=== PATIENT | male | born 1945 | race Caucasian/White ===

== ENCOUNTER 2018-02-02 18:09 | Inpatient (IN) | payer OTHER ==
[~2018-02-02] VITALS: Ht 175.3 cm; Wt 149.5 kg
[~2018-02-02 18:09] MED LIST: ALBUTEROL2.5 MG/3 M INH; ANTIVERT12.5 MG PO; ASPIRIN81 M4 PO; ATORVASTATIN CA40 M1 PO; CENTRUM SILVER1 EAC3 PO; CIPRO 500MG TA500 MG PO; FOLIC ACID1 M1; FUROSEMIDE40 M1 PO; GEMFIBROZIL600 M1 PO; LASIX80 M1 PO; LISINOPRIL10 M1 PO; METOPROLOL TART50 M1 PO; PREVACID15 M1 PO; SIMVASTATIN40 M1
--- NOTE | 2018-02-02 18:15 | ED GENERAL ADULT ---
History of Present Illness General Chief Complaint: Dizziness Stated Complaint: DIZZINESS AND LIGHTHEADED SINCE 10 AM TODAY Source: patient, old records, EMS Exam Limitations: no limitations Vital Signs & Intake/Output Vital Signs & Intake/Output Vital Signs Date Time Temp Pulse Resp B/P B/P Pulse O2 O2 Flow FiO2 Mean Ox Delivery Rate 02/02 2210 98.2 94 18 143/61 95 Nasal 3.0L Cannula 02/02 1923 96 Nasal 3.0L Cannula 02/02 191 100 190/88 02/02 191 98.1 100 22 190 95 Nasal 3.0L Cannula 02/02 1835 95 Nasal 3.0L Cannula 02/02 1819 98.4 90 22 192/87 94 Nasal 3.0L Cannula Allergies Coded Allergies: aspirin (BLEEDING 03/15/16) Triage Nurses Notes Reviewed? yes HPI: Patient states that at approximately 11:00 this morning he began to feel lightheaded. The lightheadedness worsens with going from a sitting to standing position. There is no change with head movement. There is no nausea or vomiting. He denies any chest pain or palpitations. He is chronically short of breath but states that it is not worse than normal. Patient states that he has slightly worse swelling to his legs. Patient states that the redness to his legs is chronic and it looks better than it normally does. Patient denies any fevers or chills. Patient denies any spinning dizziness. (Stefania TORRES,Calixto Shanks) Reconcile Medications Acetylcysteine (Acetadote) (Unknown Strength) VIAL (Unknown Dose) INH AD PRN MUCUS (Reported) Albuterol Sulfate 2.5 MG/3 ML VIAL.NEB 1 VIAL INH 5XDAILY PRN COPD (Reported) Albuterol Sulfate (Ventolin Hfa) 90 MCG HFA.AER.AD 2 PUF INH Q4H PRN RESP. ( Reported) Aspirin (Aspirin*) 81 MG TAB.CHEW 81 MG PO DAILY heart health Atorvastatin Calcium 40 MG TABLET 40 MG PO 1700 HEALTH SUPPLEMENT Budesonide/Formoterol Fumarate (Symbicort 160-4.5 Mcg Inhaler) 160 MCG-4.5 MCG/ ACTUATION HFA.AER.AD 2 PUF INH BID COPD (Reported) Folic Acid 0.4 MG TABLET 1 TAB PO DAILY SUPPLEMENT (Reported) Furosemide 40 MG TABLET 1 TAB PO QPM HIGH BLOOD PRESSURE (Reported) Furosemide (Lasix) 80 MG TABLET 1 TAB PO QAM DIURETIC (Reported) Gemfibrozil 600 MG TABLET 1 TAB PO BID CHOLESTEROL (Reported) Ipratropium [place] 0.2 MG/ML (0.02 %) SOLUTION 1 Vial INH/KING 5XDAILY PRN COPD (Reported) Lansoprazole (Prevacid) 15 MG CAPSULE.DR 1 CAP PO DAILY GI (Reported) Lisinopril 10 MG TABLET 10 MG PO DAILY blood pressure Meclizine HCl 25 MG TABLET 1 TAB PO AD PRN DIZZINESS (Reported) Metoprolol Tartrate 50 MG TABLET 1 TAB PO BID HEART/BP (Reported) Multivit-Min/FA/Lycopen/Lutein (Centrum Silver Tablet) 1 EACH TABLET 1 TAB PO DAILY SUPPLEMENT (Reported) Polycarbophil (Fiber) (Unknown Strength) TABLET (Unknown Dose) PO DAILY SUPPLEMENT (Reported) Vitamin E Mixed (Vitamin E) 400 UNIT CAPSULE 2 CAP PO DAILY SUPPLEMENT ( Reported) (Lizz TORRES,Laci Mistry) Past History Travel History Traveled to [place] past 21 day No Medical History Any Pertinent Medical History? 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 No (Stefania TORRES,Calixto Shanks) Review of Systems Review of Systems Constitutional: Reports: no symptoms. EENTM: Reports: no symptoms. Respiratory: Reports: no symptoms. Cardiovascular: Reports: no symptoms. GI: Reports: no symptoms. Genitourinary: Reports: no symptoms. Musculoskeletal: Reports: no symptoms. Skin: Reports: no symptoms. Neurological/Psychological: Reports: see HPI. Hematologic/Endocrine: Reports: no symptoms. Immunologic/Allergic: Reports: no symptoms. All Other Systems: Reviewed and Negative (Stefania TORRES,Calixto Shanks) Physical Exam Physical Exam General Appearance: well developed/nourished, alert, awake, moderate distress Head: atraumatic, normal appearance Eyes: Bilateral: PERRL, EOMI. Ears, Nose, Throat: normal pharynx, normal ENT inspection, hearing grossly normal Neck: normal inspection, supple, full range of motion Respiratory: normal breath sounds, chest non-tender, decreased breath sounds Cardiovascular: regular rate/rhythm, normal peripheral pulses Gastrointestinal: normal bowel sounds, soft Back: normal inspection, normal range of motion Extremities: pedal edema, RYTHEMA Neurologic/Psych: no motor/sensory deficits, awake, alert, oriented x 3, normal mood/affect Skin: intact, warm/dry Core Measures ACS in differential dx? No CVA/TIA Diagnosis: No Sepsis Present: No Sepsis Focused Exam Completed? No (Stefania TORRES,Calixto Shanks) Progress Differential Diagnoses I considered the following diagnoses in my evaluation of the patient: [Hypoxia, hypercarbia, electrolyte abnormality, AMI, orthostasis] Plan of Care: Orders Procedure Date/time Status ARTERIAL BLOOD GAS (GEN) 02/02 1814 Complete MISTAKE 02/02 1814 Active Telemetry/Take Away Attendant 02/02 1814 Active URINALYSIS 02/02 1814 Complete TROPONIN LEVEL 02/02 1814 Complete COMPREHENSIVE METABOLIC PANEL 02/02 1814 Complete CBC WITHOUT DIFFERENTIAL 02/02 1814 Complete EKG 02/02 1814 Active Current Medications Sig/Gracia Start time Last Medication Dose Stop Time Status Admin Albuterol Sulfate 3 ML ONCE ONE 02/02 2145 CAN (Proventil) 02/02 2146 Diphenhydramine HCl 50 MG ONCE ONE 02/02 2145 CAN (Benadryl) 02/02 2146 Famotidine 20 MG ONCE ONE 02/02 2145 CAN (Pepcid) 02/02 2146 Ipratropium [place] 2.5 ML ONCE ONE 02/02 2145 CAN (Atrovent) 02/02 2146 Methylprednisolone 125 MG ONCE ONE 02/02 2145 CAN (Solu Medrol) 02/02 2146 Laboratory Tests 02/02/180: Urine Color YEL, Urine Clarity CLEAR, Urine pH 6.0, Ur Specific [place] 1.010, Urine Protein NEG, Urine Ketones NEG, Urine Nitrite NEG, Urine Bilirubin NEG, Urine Urobilinogen 0.2, Ur Leukocyte Esterase TRACE H, Ur Microscopic SEDIMENT EXAMINED, Urine RBC 1-3, Urine WBC 1-3 H, Ur Epithelial Cells RARE, Urine Bacteria RARE H, Urine Hemoglobin MOD H, Urine Glucose NEG 02/02/18 1850: Anion Gap 13, Estimated GFR > 60, BUN/Creatinine Ratio 28.6 H, Glucose 108 H, Calcium 9.1, Total Bilirubin 0.7, AST 43, ALT 36, Alkaline Phosphatase 38, Troponin I 0.01, Total Protein 7.6, Albumin 4.3, Globulin 3.3, Albumin/Globulin Ratio 1.3, CBC w Diff NO MAN DIFF REQ, RBC 4.18 L, MCV 87.2, MCH 29.0, MCHC 33.2, RDW 14.1, MPV 8.9, Gran % 67.2, Lymphocytes % 20.5, Monocytes % 10.4 H, Eosinophils % 1.6, Basophils % 0.3, Absolute Granulocytes 5.1, Absolute Lymphocytes 1.5, Absolute Monocytes 0.8 H, Absolute Eosinophils 0.1, Absolute Basophils 0 02/02/18 181: pH 7.43, pCO2 46 H, pO2 82, HCO3 30 H, ABG O2 Sat (Measured) 95.0 L, Carboxyhemoglobin 1.0 L, O2 Concentration % 3L, O2 Delivery Method NC, Phlebotomy Draw Site RIGHT RADIAL Diagnostic Imaging: Viewed by Me: Radiology Read. Discussed w/RAD: Radiology Read. Initial ED EKG: NSR, nonspecific ST T wave chg Prior EKG: unchanged Rhythm Strip: normal sinus rhythm Hand-Off Endorsed To: Lizz TORRES,Laci Mistry Endorsed Time: 1899 Pending: labs (Stefania TORRES,Calixto Shanks) CXR Impression: PATIENT: MEHNAZ MONTANEZ PRESENT AGE : 72 PATIENT ACCOUNT NO: [id number] : 46 LOCATION: [facility] ORDERING PHYSICIAN: Calixto Aguiar MD SERVICE DATE: 02/02/18-1813 EXAM TYPE: RAD - XRY-PORTABLE CHEST XRAY EXAMINATION: CHEST 1 VIEW CLINICAL INFORMATION: Shortness of breath. COMPARISON: 05/04/2017. TECHNIQUE: An AP view of the chest is provided. FINDINGS: The cardiac silhouette is stable. The mediastinal and hilar contours are unremarkable. There are neither pleural effusions nor pneumothoraces. There are no consolidations. The osseous structures are unremarkable. IMPRESSION: No evidence for acute disease. DICTATED BY: Dakota Curry MD DATE/TIME DICTATED:02/02/181920 COAGULATING OPERATOR:TRACY DATE/TIME TRANSCRIBED:02/02/181920 CONFIDENTIAL, DO NOT COPY WITHOUT APPROPRIATE AUTHORIZATION. <Electronically signed in Other Vendor System> SIGNED BY: Dakota Curry MD 02/02/181924 (Laci Zamudio MD) Departure Departure Disposition: STILL A PATIENT Condition: Stable Clinical Impression Primary Impression: Lightheadedness Referrals: Sonali TORRES,Brandi (PCP/Family) Departure Forms: Customer Survey General Discharge Information (Stefania TORRES,Calixto Shanks) Departure Comments 02/02/18, 21:38... discussed with dr. hill... pt merits admission for medical optimization. Admission Note Spoke With: Reji Joyner MD Documentation of Exam: Documentation of any treatments & extenuating circumstances including Concerns Regarding Discharge (functional status, medication knowledge or non-compliance, living conditions, etc.) that warrant an admission rather than observation: Pt with pre-syncopal symptoms in context of significant co-morbidites - 3 liters nasal cannula, significant chf w/ lower extremity edema. Pt merits medication optimization, stable for gen med. (Laci Zamudio MD) Critical Care Note Critical Care Note Critical Care Time: non-applicable (Calixto Aguiar MD) Critical Care Note Critical Care Time: 30-74 min (Laci Zamudio MD)
[2018-02-02 19:03] LABS: ABSOLUTE BASOPHIL COUNT 0 /CUMM (0.0-0.2); ABSOLUTE EOSINOPHIL COUNT 0.1 /CUMM (0.0-0.7); ABSOLUTE GRANULOCYTE CT 5.1 /CUMM (1.4-6.5); ABSOLUTE LYMPH COUNT 1.5 /CUMM (1.2-3.4); ABSOLUTE MONOCYTE COUNT 0.8 /CUMM (0.10-0.60); BASOPHIL % 0.3 % (0.0-2.0); EOSINOPHIL % 1.6 % (0-5); GRANULOCYTE % 67.2 % (42.2-75.2); HEMATOCRIT 36.5 % (42-52); MEAN CORPUSCULAR HGB CONC 33.2 G/DL (33.0-37.0); MEAN CORPUSCULAR VOLUME 87.2 FL (80.0-94.0); MEAN PLATELET VOLUME 8.9 FL (7.4-10.4); PLATELET COUNT 169 /CUMM (130-400); RBC DISTRIBUTION WIDTH 14.1 % (11.5-14.5); RED BLOOD CELL CT 4.18 /CUMM (4.70-6.10); WHITE BLOOD CELL COUNT 7.5 /CUMM (4.8-10.8)
--- NOTE | 2018-02-02 19:25 | RADIOLOGY REPORT ---
EXAMINATION: CHEST 1 VIEW CLINICAL INFORMATION: Shortness of breath. COMPARISON: 05/04/2017. TECHNIQUE: An AP view of the chest is provided. FINDINGS: The cardiac silhouette is stable. The mediastinal and hilar contours are unremarkable. There are neither pleural effusions nor pneumothoraces. There are no consolidations. The osseous structures are unremarkable. IMPRESSION: No evidence for acute disease.
[2018-02-02] MEDS ORDERED: IPRATROPIU0.2 MG/1 M INH/SOL (21:29)
[2018-02-02] MEDS ORDERED: FOLIC ACID0.4 M1 PO (21:31)
[2018-02-02] MEDS ORDERED: LASIX80 M1 PO (21:32)
[2018-02-02] MEDS ORDERED: MECLIZINE HCL25 MG PO (21:33)
[2018-02-02] MEDS ORDERED: ACETADOTE200 MG/1 M INH (21:35)
[2018-02-02] MEDS ORDERED: SYMBICORT 16010.2 GM INH (21:35)
[2018-02-02] MEDS ORDERED: VENTOLIN HFA18 GM INH (21:35)
[2018-02-02] MEDS ORDERED: VITAMIN E400 UNIT PO (21:36)
[2018-02-02] MEDS ORDERED: FIBER625 MG PO (21:37)
--- NOTE | 2018-02-02 23:03 | History & Physical ---
Mitzy TORRES,Calixto 02/02/18 5510: General Information and HPI MD Statement: I have seen and personally examined MEHNAZ MONTANEZ and documented this H&P. The patient is a 72 year old M who presented with a patient stated chief complaint of [lightheadedness]. Source of Information: patient, old records Exam Limitations: poor historian History of Present Illness: Patient is a 72-year-old male with a PMH significant for COPD on 33 0.5 L home O2, BARBARA noncompliant with CPAP, HTN, HLD, chronic lower extremity edema, CHF, AAA, who presented was brought into the [facility] ED via ambulance after the patient called paramedics for an episode of severe lightheadedness at rest. Patient states that approximately 11 AM he experienced severe lightheadedness, and a sense of near syncope. Patient did not lose consciousness. The onset occurred while he was sitting in a chair, not exerting himself he had no associated dyspnea, palpitations, chest pain, nausea. He did note after its onset and intense feeling of warmth throughout his whole body which quickly resolved, however the lightheadedness persisted. He took 1 dose of meclizine which was prescribed by his PCP, he said that this did help initially however the sensation returned quickly. He notes that over the past year he has had similar episodes, however this was more severe. He notes at times that he does get lightheaded with certain positional head movements, however this is not he denied any numbness, tingling, visual change, weakness. Review of systems was positive for worsening lower extremity as well as swelling of his hands bilaterally. He also notes that he occasionally has significant amount of bright red blood on his tissue paper after bowel movement, this has been worked up by GI and was determined to be hemorrhoidal bleeding. in the last several months his dose of Lasix was increased patient follows with Dr. Diamond for cardiology. Allergies/Medications Allergies: Coded Allergies: aspirin (BLEEDING 03/15/16) Home Med list Acetylcysteine (Acetadote) (Unknown Strength) VIAL (Unknown Dose) INH AD PRN MUCUS (Reported) Albuterol Sulfate 2.5 MG/3 ML VIAL.NEB 1 VIAL INH 5XDAILY PRN COPD (Reported) Albuterol Sulfate (Ventolin Hfa) 90 MCG HFA.AER.AD 2 PUF INH Q4H PRN RESP. ( Reported) Aspirin (Aspirin*) 81 MG TAB.CHEW 81 MG PO DAILY heart health Atorvastatin Calcium 40 MG TABLET 40 MG PO 1700 HEALTH SUPPLEMENT Budesonide/Formoterol Fumarate (Symbicort 160-4.5 Mcg Inhaler) 160 MCG-4.5 MCG/ ACTUATION HFA.AER.AD 2 PUF INH BID COPD (Reported) Folic Acid 0.4 MG TABLET 1 TAB PO DAILY SUPPLEMENT (Reported) Furosemide 40 MG TABLET 1 TAB PO QPM HIGH BLOOD PRESSURE (Reported) Furosemide (Lasix) 80 MG TABLET 1 TAB PO QAM DIURETIC (Reported) Gemfibrozil 600 MG TABLET 1 TAB PO BID CHOLESTEROL (Reported) Ipratropium [place] 0.2 MG/ML (0.02 %) SOLUTION 1 Vial INH/KING 5XDAILY PRN COPD (Reported) Lansoprazole (Prevacid) 15 MG CAPSULE.DR 1 CAP PO DAILY GI (Reported) Lisinopril 10 MG TABLET 10 MG PO DAILY blood pressure Meclizine HCl 25 MG TABLET 1 TAB PO AD PRN DIZZINESS (Reported) Metoprolol Tartrate 50 MG TABLET 1 TAB PO BID HEART/BP (Reported) Multivit-Min/FA/Lycopen/Lutein (Centrum Silver Tablet) 1 EACH TABLET 1 TAB PO DAILY SUPPLEMENT (Reported) Polycarbophil (Fiber) (Unknown Strength) TABLET (Unknown Dose) PO DAILY SUPPLEMENT (Reported) Vitamin E Mixed (Vitamin E) 400 UNIT CAPSULE 2 CAP PO DAILY SUPPLEMENT ( Reported) Past History Travel History Traveled to [place] past 21 day No Medical History Neurological: NONE EENT: NONE Cardiovascular: CHF (DIASTOLIC DYSFUNCTION), hypertension, hyperlipidemia, AAA Respiratory: COPD, obstructive sleep apnea (NON COMPLIANT WITH CPAP), 02 3L DEPENDANT Gastrointestinal: GERD Hepatic: NONE Renal: NONE Musculoskeletal: NONE Psychiatric: NONE Endocrine: NONE Blood Disorders: NONE Cancer(s): NONE 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 EENTM: Denies: blurred vision, double vision, visual changes. Cardiovascular: Reports: orthopena (at baseline), peripheral edema. Denies: chest pain, palpitations, syncope (near syncope). Respiratory: Reports: orthopnea. Denies: cough, short of breath, sputum production. GI: Reports: bloody stool (known hemorrhoids). Denies: bloating, constipation, bowel incontinence, melena, nausea. Genitourinary: Denies: discharge, frequency, hematuria, urgency. Musculoskeletal: Reports: no symptoms. Exam & Diagnostic Data Last 24 Hrs of Vital Signs/I&O Vital Signs Date Time Temp Pulse Resp B/P B/P Pulse O2 O2 Flow FiO2 Mean Ox Delivery Rate 02/03 0103 Nasal 3.0L Cannula 02/03 0103 98.4 86 22 148/86 96 Nasal 3.5L Cannula 02/03 0041 96 Nasal 3.0L Cannula 02/02 2359 98.2 89 18 181/77 96 Nasal 3.0L Cannula 02/02 2210 98.2 94 18 143/61 95 Nasal 3.0L Cannula 02/02 1923 96 Nasal 3.0L Cannula 02/02 1910 100 190/88 02/02 1910 98.1 100 22 190/88 95 Nasal 3.0L Cannula 02/02 1835 95 Nasal 3.0L Cannula 02/02 1819 98.4 90 22 192/87 94 Nasal 3.0L Cannula Intake & Output 02/03 0800 02/03 0000 02/02 1600 Intake Total Output Total 800 Balance -800 Output, Urine 800 Patient 341 lb Weight Weight Estimated Measurement Method Physical Exam General Appearance Alert, Oriented X3, Cooperative Skin Temp/Moisture Exam: Warm/Dry Sepsis Skin Exam (color): Normal for Ethnicity HEENT Atraumatic, PERRLA, EOMI, Mucous Membr. moist/pink Neck No JVD, +2 Carotid Pulse wo Bruit Cardiovascular Regular Rate, Normal S1, Normal S2 Lungs diminished breath sounds secondary to body habitus, no w/r/r Abdomen Normal Bowel Sounds, Soft, No Tenderness, obese Neurological Normal Speech, Strength at 5/5 X4 Ext, Normal Tone, Sensation Intact, Cranial Nerves 3-12 NL, fatigable horizontal nystagmus Extremities chronic venous stasis changes on the LEs bilaterally, 2+ pitting edema of the LEs bilaterally, trace edema of the hands bilaterally Last 24 Hrs of Labs/Sanya: Laboratory Tests 02/02/181909: Urine Color YEL, Urine Clarity CLEAR, Urine pH 6.0, Ur Specific [place] 1.010, Urine Protein NEG, Urine Ketones NEG, Urine Nitrite NEG, Urine Bilirubin NEG, Urine Urobilinogen 0.2, Ur Leukocyte Esterase TRACE H, Ur Microscopic SEDIMENT EXAMINED, Urine RBC 1-3, Urine WBC 1-3 H, Ur Epithelial Cells RARE, Urine Bacteria RARE H, Urine Hemoglobin MOD H, Urine Glucose NEG 02/02/18 1850: Anion Gap 13, Estimated GFR > 60, BUN/Creatinine Ratio 28.6 H, Glucose 108 H, Calcium 9.1, Total Bilirubin 0.7, AST 43, ALT 36, Alkaline Phosphatase 38, Troponin I 0.01, Total Protein 7.6, Albumin 4.3, Globulin 3.3, Albumin/Globulin Ratio 1.3, CBC w Diff NO MAN DIFF REQ, RBC 4.18 L, MCV 87.2, MCH 29.0, MCHC 33.2, RDW 14.1, MPV 8.9, Gran % 67.2, Lymphocytes % 20.5, Monocytes % 10.4 H, Eosinophils % 1.6, Basophils % 0.3, Absolute Granulocytes 5.1, Absolute Lymphocytes 1.5, Absolute Monocytes 0.8 H, Absolute Eosinophils 0.1, Absolute Basophils 0 02/02/181814: pH 7.43, pCO2 46 H, pO2 82, HCO3 30 H, ABG O2 Sat (Measured) 95.0 L, Carboxyhemoglobin 1.0 L, O2 Concentration % 3L, O2 Delivery Method NC, Phlebotomy Draw Site RIGHT RADIAL Diagnostic Data EKG Results NSR HR 87m QTc 423, with PVC CXR Results The cardiac silhouette is stable. The mediastinal and hilar contours are unremarkable. There are neither pleural effusions nor pneumothoraces. There are no consolidations. The osseous structures are unremarkable. IMPRESSION: No evidence for acute disease. Assessment/Plan Assessment: Patient is a 72-year-old male with a PMH significant for COPD on 33 0.5 L home O2, BARBARA noncompliant with CPAP, HTN, HLD, chronic lower extremity edema, CHF, AAA, who presented was brought into the [facility] ED via ambulance after the patient called paramedics for an episode of severe lightheadedness at rest. Vital signs on admission: T 98.4, P 90, RR 22, BP 1 9 2/8 7, pulse ox 94% on 3 L orthostatic vital signs positive, 190/88 supine 167/74 standing Labs: WBC 7.5, H/H 12.1/36.5, platelets 169, sodium 137, potassium 4.2, chloride 92, CO2 32, BUN 20, creatinine 0.7, glucose 108, blood gas: 7.43/46/82/30 Problem list #Recurrent lightheadedness with orthostatic hypotension #Chronic medical problems plan Plan -Admit to telemetry -Continuous telemetry monitoring -1 bag IV NS, patient appears to be euvolemic however he does have worsening of his chronic lower extremity edema, he recently had an increased dose of his Lasix and has been shown to have aortic sclerosis however has not had an echo with a good view of his aortic valve recently. -Cardiology consult will be placed in the a.m. -PT evaluation and treatment with Gui-Hallpike maneuver -Repeat orthostatics in the a.m. -Echocardiogram -Repeat troponin EKG in a.m. -CPAP for BARBARA -We will hold Lasix and metoprolol for now, will reassess fluid status in AM -Continue rest of home medications -TRC/nebs Diet: Heart healthy DVT prophylaxis: Lovenox, Alps CODE STATUS: Full code As Ranked By This Provider Problem List: 1. Lightheadedness Core Measures/Misc (05/28) Acute Coronary Syndrome ACS Diagnosis: No Cerebrovascular Accident CVA/TIA Diagnosis: No VTE (View Protocol) VTE Risk Factors Age>40 No Mechanical VTE Prophylaxis d/t N/A MechProphylax Ordered No VTE Pharm Prophylaxis d/t NA PharmProphylax ordered Sepsis (View protocol) Sepsis Present: No If YES complete Sepsis Event Note If YES complete Sepsis Event Note Abhilash Smith 02/03/18 0033: Assessment/Plan As Ranked By This Provider Problem List: 1. Vertigo Core Measures/Misc (05/28) Acute Coronary Syndrome ACS Diagnosis: No Congestive Heart Failure Congestive Heart Failure Diagnosis No Cerebrovascular Accident CVA/TIA Diagnosis: No Sepsis (View protocol) Sepsis Present: No If YES complete Sepsis Event Note If YES complete Sepsis Event Note Resident Review Statement Resident Statement: examined this patient, discussed with international marketing executive, agreed with international marketing executive, discussed with family, discussed with case mgmt, reviewed images, amended to note Other Findings: 72 year old gentleman with extensive PMH most significant for chronic leg swelling on high dose Lasix, and recent increase in Lasix dose presents to ED with lightheadeness/dizziness of few months duration, treated by Dr. Lyon with Meclizine on the outside with some relief. No recent URI or sinus infection. Feeling of warmth prior to the episode. Positive ringing in ear. Symptoms at times brought in by changes in head position. Fatiguable horizontal nystagmus on exam. Positive orthostats in ED. Echos in the past with some concern for aortic slerosis, but limited visualization of valves due to body habitus. Poor sleep hygeine, lack of compliance with CPAP due to mask issues - excessive daytime tiredness and sleepiness. Component of anxiety. The above constellation of symtoms suggest the most fitting diagosis as "Ill Defined Lightheadness". Orthostatic hypotension is a strong possibility, likely 2/2 increased recent Lasix dose. Check orthostats, 1 L NS. Admit to telemetry. Check echo to assess AV sclerosis/stenosis (or obtain recent Echo results). Rule of ACS. Dixpike maneuver (PT) and Macey if positive. Would hold Meclizine. Encourage CPAP use, will order. TRC. Sleep hygeine. Full code. Passed bedside swallow eval- will order diet. Lovenox for DVT ppx. Ar TORRES, [facility] 02/03/18 0353: Core Measures/Misc (05/28) Sepsis (View protocol) If YES complete Sepsis Event Note If YES complete Sepsis Event Note Attending MD Review Statement Attending Statement Attending MD Statement: examined this patient, discuss w/resident/PA/SLAB WORKER, agreed w/resident/PA/SLAB WORKER, reviewed images, amended to note Attending Assessment/Plan: 72 yo morbidly obese M with h/o diastolic CHF, HTN, OHS, BARBARA noncompliant with CPAP, COPD on 3 3.5L O2, chronic cor pulmonale, chronic lower extremity edema with venous stasis, AAA, is here for evaluation of lightheadedness that has been ongoing for the past 1 year, but got worse today. He tried taking meclizine that was prescribed by his PCP without much relief. Symptoms may be positional at times. He reports chronic dyspnea that is unchanged. Of note, his lasix dose has been increased recently to 80 AM and [address] Diamond. He reports increasing edema of both hands in addition to his lower extremities. He denies chest pain, palpitations or nausea/ diaphoresis. Vitals stable except for elevated BP. Exam as above. Labs: bicarb 32 (chronic), glucose 108, trop negative, AB.43/46/82/30. UA negative. CXR: no acute disease. EKG: sinus rhythm, PVC's, Qtc 433. Echo (2016): EF 55-60%. Orthostats: Lying 190/88 --> Sitting 185/100 --> Standing 167/74. Assessment and plan: 1. Lightheadedness, pre-syncope. BPPV is a possibility. 2. Orthostatic hypotension 3. Chronic diastolic heart failure 4. Chronc hypoxic and hypercarbic respiratory failure 5. Severe BARBARA and OHS noncompliant with CPAP - Admit to Telemetry - Serial EKG and troponin - Obtain echocardiogram - Gentle hydration - Recheck orthostats in AM - Cardio consult - Hold lasix for now, resume based on cardio recs - Hold lisinopril - PT eval - Continue meclizine - Nocturnal CPAP - Resume apsirin, statin, symbicort, metoprolol and gemfibrozil. DVT ppx Lovenox. Full code.
[2018-02-03 01:03] VITALS: BP 148/86
--- NOTE | 2018-02-03 03:43 | PN- Housestaff ---
See Addendum Subjective Follow-up For: Presyncope Tele-Events Since Last Visit: Sinus rhythm, rate 77-90. Subjective: Sleeping in chair this morning, no further episodes of lightheadedness or dizziness. Reports breathing at baseline. Use CPAP at night. Reports fair sleep overnight. No nausea or vomiting, no chest pain or palpitations. Review of Systems Constitutional: Reports: see HPI. Objective Last 24 Hrs of Vital Signs/I&O Vital Signs Date Time Temp Pulse Resp B/P B/P Pulse O2 O2 Flow FiO2 Mean Ox Delivery Rate 02/03 0244 90 96 02/03 0103 Nasal 3.0L Cannula 02/03 010 98.4 86 22 148/86 96 Nasal 3.5L Cannula 02/03 0041 96 Nasal 3.0L Cannula 02/02 2359 98.2 89 18 181/77 96 Nasal 3.0L Cannula 02/02 2210 98.2 94 18 143/61 95 Nasal 3.0L Cannula 02/02 1923 96 Nasal 3.0L Cannula 02/02 191 100 190/88 02/02 1910 98.1 100 22 190/88 95 Nasal 3.0L Cannula 02/02 1835 95 Nasal 3.0L Cannula 02/02 1819 98.4 90 22 192/87 94 Nasal 3.0L Cannula Intake & Output 02/03 0800 02/03 0000 02/02 1600 Intake Total Output Total 800 Balance -800 Output, Urine 800 Patient 341 lb Weight Weight Estimated Measurement Method Physical Exam General Appearance: Alert, Oriented X3, Cooperative HEENT: Atraumatic, PERRLA, EOMI Cardiovascular: Regular Rate, Normal S1, Normal S2 Lungs: Clear to Auscultation, Normal Air Movement Abdomen: Normal Bowel Sounds, Soft, No Tenderness Extremities: 2+ pitting edema bilaterally. Current Medications: Current Medications Sig/Gracia Start time Last Medication Dose Route Stop Time Status Admin Albuterol Sulfate 3 ML 5 TIMES A DAY PRN 02/03 0600 AC INH Albuterol Sulfate 2 PUF Q4H PRN 02/03 0045 AC INH Albuterol Sulfate 3 ML ONCE ONE 02/02 2145 CAN INH 02/02 2146 Albuterol Sulfate 3 ML ONCE ONE 02/02 1915 DC 02/02 INH 02/02 191 192 Aspirin 81 MG DAILY 02/03 0900 AC PO Atorvastatin Calcium 40 MG 1700 02/03 170 AC PO Budesonide/ 2 PUF BID 02/03 31 AC Formoterol Fumarate INH Diphenhydramine HCl 50 MG ONCE ONE 02/02 2145 CAN IV 02/02 2146 Enoxaparin Sodium 40 MG DAILY 02/03 900 AC SC Famotidine 20 MG ONCE ONE 02/02 2145 CAN IV 02/02 2146 Gemfibrozil 600 MG BID 02/03 900 AC PO Ipratropium [place] 2.5 ML 5 TIMES A DAY PRN 02/03 004 AC INH Ipratropium [place] 2.5 ML ONCE ONE 02/02 2145 CAN INH 02/02 2146 Ipratropium [place] 2.5 ML ONCE ONE 02/02 1915 DC 02/02 INH 02/03 1916 192 Lisinopril 10 MG DAILY 02/03 900 AC PO Meclizine HCl 12.5 MG TID PRN 02/03 45 AC PO Methylprednisolone 125 MG ONCE ONE 02/02 2145 CAN IV 02/02 2146 Metoprolol Tartrate 50 MG BID 02/03 900 AC PO Omeprazole 40 MG DAILY AC 02/03 07 AC PO Sodium Chloride 1,000 ML SEE RATE 02/03 0030 AC 02/03 IV 02/03 1349 0129 Last 24 Hrs of Lab/Sanya Results Last 24 Hrs of Labs/Mics: Laboratory Tests 02/02/181909: Urine Color YEL, Urine Clarity CLEAR, Urine pH 6.0, Ur Specific [place] 1.010, Urine Protein NEG, Urine Ketones NEG, Urine Nitrite NEG, Urine Bilirubin NEG, Urine Urobilinogen 0.2, Ur Leukocyte Esterase TRACE H, Ur Microscopic SEDIMENT EXAMINED, Urine RBC 1-3, Urine WBC 1-3 H, Ur Epithelial Cells RARE, Urine Bacteria RARE H, Urine Hemoglobin MOD H, Urine Glucose NEG 02/02/18 185: Anion Gap 13, Estimated GFR > 60, BUN/Creatinine Ratio 28.6 H, Glucose 108 H, Calcium 9.1, Total Bilirubin 0.7, AST 43, ALT 36, Alkaline Phosphatase 38, Troponin I 0.01, Total Protein 7.6, Albumin 4.3, Globulin 3.3, Albumin/Globulin Ratio 1.3, CBC w Diff NO MAN DIFF REQ, RBC 4.18 L, MCV 87.2, MCH 29.0, MCHC 33.2, RDW 14.1, MPV 8.9, Gran % 67.2, Lymphocytes % 20.5, Monocytes % 10.4 H, Eosinophils % 1.6, Basophils % 0.3, Absolute Granulocytes 5.1, Absolute Lymphocytes 1.5, Absolute Monocytes 0.8 H, Absolute Eosinophils 0.1, Absolute Basophils 0 02/02/181814: pH 7.43, pCO2 46 H, pO2 82, HCO3 30 H, ABG O2 Sat (Measured) 95.0 L, Carboxyhemoglobin 1.0 L, O2 Concentration % 3L, O2 Delivery Method NC, Phlebotomy Draw Site RIGHT RADIAL Assessment/Plan Assessment: 72-year-old gentleman with history of COPD on 3-3.5 L home oxygen, obstructive sleep apnea-currently not using CPAP, hypertension, hyperlipidemia chronic lower extremity edema, who presented to ED for evaluation of episodes of lightheadedness and presyncope. 1. Presyncope. Orthostatic positive in ED. hold Lasix. 1 L of normal saline. Check orthostatics in the morning. PT [id number] and Macey. May continue meclizine. Cardiology evaluation. Rule out ACS. Echocardiogram to assess valvular function. 2. COPD. Continue supplemental oxygen. ABG acceptable. TRC, continue home nebulizers. 3. Obstructive sleep apnea. CPAP nocturnally. 4. Hypertension. Continue home antihypertensives. 5. Chronic lower extremity edema. Resume Lasix, needs dose readjustment. Cardiology consult. Labs pending. Full Code Lovenox for DVT prophylaxis. Heart healthy diet. Problem List: 1. Vertigo Pain Ratin Pain Location: None Pain Goal: Remain pain free Pain Plan: PRN Tomorrow's Labs & Rationales: CBC CMP
--- NOTE | 2018-02-03 04:49 | Admission Certification ---
Admission Certification Certification Statement - As attending physician, I certify that at the time of - admission, based on clinical presentation, severity of - symptoms, need for further diagnostic testing and - therapeutic interventions, and risk of adverse outcomes - without in-hospital treatment, in my clinical assessment, - this patient requires an acute hospital stay for a minimum - of two nights or longer. I have also considered psychsocial - factors such as support system, advanced age, financial - issues, cognitive issues, and failed out-patient treatments, - past re-admission history, safety of patient, and lack of - compliance as applicable. Specific rationale supporting this admission is: Presyncope, orthostatic hypotension.
[2018-02-03 06:46] VITALS: BP 160/84
--- NOTE | 2018-02-03 12:21 | Cons- Pulmonary ---
General Information and HPI Consulting Request Date of Consult: 02/03/18 Requested By: Ed/patient History of Present Illness: Patient is a 72-year-old male with a PMH significant for COPD on 33 0.5 L home O2, BARBARA noncompliant with CPAP, HTN, HLD, chronic lower extremity edema, CHF, AAA, who presented was brought into the [facility] ED via ambulance after the patient called paramedics for an episode of severe lightheadedness at rest. Patient states that approximately 11 AM he experienced severe lightheadedness, and a sense of near syncope. Patient did not lose consciousness. The onset occurred while he was sitting in a chair, not exerting himself he had no associated dyspnea, palpitations, chest pain, nausea. He did note after its onset and intense feeling of warmth throughout his whole body which quickly resolved, however the lightheadedness persisted. He took 1 dose of meclizine which was prescribed by his PCP, he said that this did help initially however the sensation returned quickly. He notes that over the past year he has had similar episodes, however this was more severe. He notes at times that he does get lightheaded with certain positional head movements, however this is not he denied any numbness, tingling, visual change, weakness. Review of systems was positive for worsening lower extremity as well as swelling of his hands bilaterally. He also notes that he occasionally has significant amount of bright red blood on his tissue paper after bowel movement, this has been worked up by GI and was determined to be hemorrhoidal bleeding. in the last several months his dose of Lasix was increased Unfortunately has not been compliant with his CPAP, does use a nebulizer, he has very end-stage COPD with chronic cor pulmonale. He's been on Lasix. Denies: chills, fever, unexplained weight loss. EENTM: Denies: blurred vision, double vision, visual changes. Cardiovascular: Reports: orthopena (at baseline), peripheral edema. Denies: chest pain, palpitations, syncope (near syncope). Respiratory: Reports: orthopnea. Denies: cough, short of breath, sputum production. GI: Reports: bloody stool (known hemorrhoids). Denies: bloating, constipation, bowel incontinence, melena, nausea. Genitourinary: Denies: discharge, frequency, hematuria, urgency. Musculoskeletal: Reports: no symptoms Allergies/Medications Allergies: Coded Allergies: aspirin (BLEEDING 03/15/16) Home Med List: Acetylcysteine (Acetadote) (Unknown Strength) VIAL (Unknown Dose) INH AD PRN MUCUS (Reported) Albuterol Sulfate 2.5 MG/3 ML VIAL.NEB 1 VIAL INH 5XDAILY PRN COPD (Reported) Albuterol Sulfate (Ventolin Hfa) 90 MCG HFA.AER.AD 2 PUF INH Q4H PRN RESP. ( Reported) Aspirin (Aspirin*) 81 MG TAB.CHEW 81 MG PO DAILY heart health Atorvastatin Calcium 40 MG TABLET 40 MG PO 1700 HEALTH SUPPLEMENT Budesonide/Formoterol Fumarate (Symbicort 160-4.5 Mcg Inhaler) 160 MCG-4.5 MCG/ ACTUATION HFA.AER.AD 2 PUF INH BID COPD (Reported) Folic Acid 0.4 MG TABLET 1 TAB PO DAILY SUPPLEMENT (Reported) Furosemide 40 MG TABLET 1 TAB PO QPM HIGH BLOOD PRESSURE (Reported) Furosemide (Lasix) 80 MG TABLET 1 TAB PO QAM DIURETIC (Reported) Gemfibrozil 600 MG TABLET 1 TAB PO BID CHOLESTEROL (Reported) Ipratropium [place] 0.2 MG/ML (0.02 %) SOLUTION 1 Vial INH/KING 5XDAILY PRN COPD (Reported) Lansoprazole (Prevacid) 15 MG CAPSULE.DR 1 CAP PO DAILY GI (Reported) Lisinopril 10 MG TABLET 10 MG PO DAILY blood pressure Meclizine HCl 25 MG TABLET 1 TAB PO AD PRN DIZZINESS (Reported) Metoprolol Tartrate 50 MG TABLET 1 TAB PO BID HEART/BP (Reported) Multivit-Min/FA/Lycopen/Lutein (Centrum Silver Tablet) 1 EACH TABLET 1 TAB PO DAILY SUPPLEMENT (Reported) Polycarbophil (Fiber) (Unknown Strength) TABLET (Unknown Dose) PO DAILY SUPPLEMENT (Reported) Vitamin E Mixed (Vitamin E) 400 UNIT CAPSULE 2 CAP PO DAILY SUPPLEMENT ( Reported) Review of Systems Review of Systems Constitutional: Reports: see HPI. 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 Surgical History Surgical History: non-contributory Family History Relations & Conditions If Any: FATHER Abdominal aortic aneurysm (AAA) MOTHER FH: cancer Psychosocial History Services at Home: Oxygen Smoking Status: Former Smoker ETOH Use: denies use Illicit Drug Use: denies illicit drug use Exam & Diagnostic Data Last 24 Hrs of Vital Signs/I&O Vital Signs Date Time Temp Pulse Resp B/P B/P Pulse O2 O2 Flow FiO2 Mean Ox Delivery Rate 02/03 0947 Nasal 3.5L Cannula 02/03 0924 80 160/72 02/03 0924 80 160/72 02/03 0800 96 Nasal 3.0L Cannula 02/03 0646 97.8 78 20 160/84 98 Nasal 3.5L Cannula 02/03 0244 90 96 02/03 0103 Nasal 3.0L Cannula 02/03 0103 98.4 86 22 148/86 96 Nasal 3.5L Cannula 02/03 0041 96 Nasal 3.0L Cannula 02/02 2359 98.2 89 18 181/77 96 Nasal 3.0L Cannula 02/02 2210 98.2 94 18 143/61 95 Nasal 3.0L Cannula 02/02 1923 96 Nasal 3.0L Cannula 02/02 1910 100 190/88 02/02 1910 98.1 100 22 190/88 95 Nasal 3.0L Cannula 02/02 1835 95 Nasal 3.0L Cannula 02/02 1819 98.4 90 22 192/87 94 Nasal 3.0L Cannula Intake & Output 02/03 1600 02/03 0800 02/03 0000 Intake Total 240 Output Total 500 800 Balance -260 -800 Intake, Oral 240 Output, Urine 500 800 Patient 335 lb 341 lb Weight Weight Chair scale Estimated Measurement Method Last 48 Hrs of Labs/Sanya: Laboratory Tests 02/03/18 1147: CBC w Diff Pending, WBC Pending, RBC Pending, Hgb Pending, Hct Pending, MCV Pending, MCH Pending, MCHC Pending, RDW Pending, Plt Count Pending, MPV Pending, Gran % Pending, Lymphocytes % Pending, Monocytes % Pending, Eosinophils % Pending, Basophils % Pending, Absolute Granulocytes Pending, Absolute Lymphocytes Pending, Absolute Monocytes Pending, Absolute Eosinophils Pending, Absolute Basophils Pending 02/03/18 0640: Anion Gap 13, Estimated GFR > 60, BUN/Creatinine Ratio 25.7 H, Troponin I 0.05 02/02/18 1910: Urine Color YEL, Urine Clarity CLEAR, Urine pH 6.0, Ur Specific [place] 1.010, Urine Protein NEG, Urine Ketones NEG, Urine Nitrite NEG, Urine Bilirubin NEG, Urine Urobilinogen 0.2, Ur Leukocyte Esterase TRACE H, Ur Microscopic SEDIMENT EXAMINED, Urine RBC 1-3, Urine WBC 1-3 H, Ur Epithelial Cells RARE, Urine Bacteria RARE H, Urine Hemoglobin MOD H, Urine Glucose NEG 02/02/18 1850: Anion Gap 13, Estimated GFR > 60, BUN/Creatinine Ratio 28.6 H, Glucose 108 H, Calcium 9.1, Total Bilirubin 0.7, AST 43, ALT 36, Alkaline Phosphatase 38, Troponin I 0.01, Total Protein 7.6, Albumin 4.3, Globulin 3.3, Albumin/Globulin Ratio 1.3, CBC w Diff NO MAN DIFF REQ, RBC 4.18 L, MCV 87.2, MCH 29.0, MCHC 33.2, RDW 14.1, MPV 8.9, Gran % 67.2, Lymphocytes % 20.5, Monocytes % 10.4 H, Eosinophils % 1.6, Basophils % 0.3, Absolute Granulocytes 5.1, Absolute Lymphocytes 1.5, Absolute Monocytes 0.8 H, Absolute Eosinophils 0.1, Absolute Basophils 0 02/02/181814: pH 7.43, pCO2 46 H, pO2 82, HCO3 30 H, ABG O2 Sat (Measured) 95.0 L, Carboxyhemoglobin 1.0 L, O2 Concentration % 3L, O2 Delivery Method NC, Phlebotomy Draw Site RIGHT RADIAL Assessment/Plan Impression/Plan: General Appearance Alert, Oriented X3, Cooperative Skin Temp/Moisture Exam: Warm/Dry Sepsis Skin Exam (color): Normal for Ethnicity HEENT Atraumatic, PERRLA, EOMI, Mucous Membr. moist/pink Neck No JVD, +2 Carotid Pulse wo Bruit Cardiovascular Regular Rate, Normal S1, Normal S2 Lungs diminished breath sounds secondary to body habitus, no w/r/r Abdomen Normal Bowel Sounds, Soft, No Tenderness, obese Neurological Normal Speech, Strength at 5/5 X4 Ext, Normal Tone, Sensation Intact, Cranial Nerves 3-12 NL, fatigable horizontal nystagmus Extremities chronic venous stasis changes on the LEs bilaterally, 2+ pitting edema of the LEs bilaterally, trace edema of the hands bilaterally SIGNIFICANT DATA Chest x-ray unremarkable Baseline bicarbonate is only 32 now potassium is adequate BUN/creatinine stable no significant elevated white count hemoglobin has been stable ABG reviewed which shows mild hypercarbia much better than before with PCO2 of 46 This is a gentleman with history of severe COPD on chronic oxygen therapy, significant cor pulmonale which is chronic, severe obstructive and central sleep apnea who has been on CPAP before was compliant now has been noncompliant, hypertension, hyperlipidemia, peripheral vascular disease with aortic aneurysm which is stable, no comes in with * Presyncope, orthostasis, recent vertigo suggestive of benign positional vertigo * Dhronic cor pulmonale with still has significant pedal edema etc. but this is stable * Chronic diastolic heart failure on Lasix * MOd severe copd with fev1 of 1.5 litres, no clear exacerbation * Very severe obstructive and central sleep apnea patient noncompliant recently due to his CPAP and mask issues * Significant fatty liver with hepatomegaly with no significant dysfunction of synthetic function of the liver * Morbid obesity with difficulty in losing weight * Chronic venous insufficiency with venous stasis with stasis dermatitis RECOMMENDATIONS Continue his nebulizer therapy Continue all his other medications No need for steroids systemically No antibiotics Continue meclizine Patient appears euvolemic Upon discharge he may need to be discharged on Lasix but probably would significantly reduce dose Keep his leg elevated Try to use CPAP at night tonight if he can tolerate keep this see if he would benefit Patient counseled extensively about his CPAP stasis mask home and use it daily Consult Acknowledgment - Thank you for your consult request.
--- NOTE | 2018-02-03 13:44 | Cons- Cardiology ---
General Information and HPI Consulting Request Date of Consult: 02/03/18 Requested By: Ar TORRES,Reji History of Present Illness: This patient is a 72 year old male with history of hypertension, dyslipidemia, CHF, NSTEMI and COPD along with obstructive sleep apnea. He is on home oxygenand is non-compliant with his CPAP. Recently this patient has noted a rather non- descript feeling of ill-being. He was brought to the ER for evaluation of a near syncopal episode that began at rest. The patient denies any associated palpitations. He also denies chest pain, pressure or tightness. He does have chronic shortness of breath which has not progressed. His episode of lightheadedness happened while sitting down in a chair and was associated with diaphoresis. He thinks it improved with Meclizine. Over the past year he has had similar episodes, however this was more severe. He notes at times that he does get lightheaded with certain positional head movements. It should be noted that this patient has had a worsening of his leg edema and was recently prescribed a higher dose of Lasix. Allergies/Medications Allergies: Coded Allergies: aspirin (BLEEDING 03/15/16) Home Med List: Acetylcysteine (Acetadote) (Unknown Strength) VIAL (Unknown Dose) INH AD PRN MUCUS (Reported) Albuterol Sulfate 2.5 MG/3 ML VIAL.NEB 1 VIAL INH 5XDAILY PRN COPD (Reported) Albuterol Sulfate (Ventolin Hfa) 90 MCG HFA.AER.AD 2 PUF INH Q4H PRN RESP. ( Reported) Aspirin (Aspirin*) 81 MG TAB.CHEW 81 MG PO DAILY heart health Atorvastatin Calcium 40 MG TABLET 40 MG PO 1700 HEALTH SUPPLEMENT Budesonide/Formoterol Fumarate (Symbicort 160-4.5 Mcg Inhaler) 160 MCG-4.5 MCG/ ACTUATION HFA.AER.AD 2 PUF INH BID COPD (Reported) Folic Acid 0.4 MG TABLET 1 TAB PO DAILY SUPPLEMENT (Reported) Furosemide 40 MG TABLET 1 TAB PO QPM HIGH BLOOD PRESSURE (Reported) Furosemide (Lasix) 80 MG TABLET 1 TAB PO QAM DIURETIC (Reported) Gemfibrozil 600 MG TABLET 1 TAB PO BID CHOLESTEROL (Reported) Ipratropium [place] 0.2 MG/ML (0.02 %) SOLUTION 1 Vial INH/KING 5XDAILY PRN COPD (Reported) Lansoprazole (Prevacid) 15 MG CAPSULE. 1 CAP PO DAILY GI (Reported) Lisinopril 10 MG TABLET 10 MG PO DAILY blood pressure Meclizine HCl 25 MG TABLET 1 TAB PO AD PRN DIZZINESS (Reported) Metoprolol Tartrate 50 MG TABLET 1 TAB PO BID HEART/BP (Reported) Multivit-Min/FA/Lycopen/Lutein (Centrum Silver Tablet) 1 EACH TABLET 1 TAB PO DAILY SUPPLEMENT (Reported) Polycarbophil (Fiber) (Unknown Strength) TABLET (Unknown Dose) PO DAILY SUPPLEMENT (Reported) Vitamin E Mixed (Vitamin E) 400 UNIT CAPSULE 2 CAP PO DAILY SUPPLEMENT ( Reported) Review of Systems Review of Systems: bloody stool Past History Travel History Traveled to [place] past 21 day No Medical History Blood Transfusion Hx: No Neurological: NONE EENT: NONE Cardiovascular: aortic aneurysm, CHF (DIASTOLIC DYSFUNCTION), hypertension, hyperlipidemia Respiratory: COPD, obstructive sleep apnea (NON COMPLIANT WITH CPAP), 02 3L DEPENDANT Gastrointestinal: GERD Hepatic: NONE Renal: NONE Musculoskeletal: NONE Psychiatric: NONE Endocrine: NONE Blood Disorders: NONE Cancer(s): NONE 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 Surgical History Surgical History: non-contributory Family History Relations & Conditions If Any: FATHER Abdominal aortic aneurysm (AAA) MOTHER FH: cancer Psychosocial History Services at Home: Oxygen Smoking Status: Former Smoker ETOH Use: denies use Illicit Drug Use: denies illicit drug use Exam & Diagnostic Data Vital Signs and I&O Vital Signs Date Time Temp Pulse Resp B/P B/P Pulse O2 O2 Flow FiO2 Mean Ox Delivery Rate 02/03 0947 Nasal 3.5L Cannula 02/03 0924 80 160/72 02/03 0924 80 160/72 02/03 0800 96 Nasal 3.0L Cannula 02/03 0646 97.8 78 20 160/84 98 Nasal 3.5L Cannula 02/03 0244 90 96 02/03 0103 Nasal 3.0L Cannula 02/03 0103 98.4 86 22 148/86 96 Nasal 3.5L Cannula 02/03 0041 96 Nasal 3.0L Cannula 02/02 2359 98.2 89 18 181/77 96 Nasal 3.0L Cannula 02/02 2210 98.2 94 18 143/61 95 Nasal 3.0L Cannula 02/02 1923 96 Nasal 3.0L Cannula 02/02 1910 100 190/88 02/02 191 98.1 100 22 190 95 Nasal 3.0L Cannula 02/02 1835 95 Nasal 3.0L Cannula 02/02 1819 98.4 90 22 192 94 Nasal 3.0L Cannula Intake & Output 02/03 0802/03 0000 02/02 0802/02 0000 Intake Total 240 Output Total 900 500 800 Balance -900 -260 -800 Intake, Oral 240 Output, Urine 900 500 800 Patient 335 lb 341 lb Weight Weight Chair scale Estimated Measurement Method Physical Exam: General: WD/obese male in NAD; alert and oriented x 3 HEENT: NC/AT, PERRL, EOMI Neck: no JVD, no carotid bruit Heart: RRR w/o murmur Lungs: no crackles or wheezing Abdomen: soft, obese, NT, +ve bowel sounds Extremities: 3+ bilateral leg edema with venous stasis changes Assessment/Plan Assessment/Plan * This patient is significantly hypertensive with normal heart rate. I am suspicous that his lightheadedness was more from a labyrinthitis than from volume depletion. His orthostatic BP measurements do not make sense and I am sure they were difficult to measure due to his obesity. It is reasonable to monitor this patient on telemetry to look for arrhythmias and obtain an echocardiogram to assess for a normal RV and LV function. I suspect that in the setting of hypoxia during sleep he develops stunning of the myocardium and decreased cardiac contractility. He needs to use his CPAP faithfully. At present , he does appear to have symptoms of RV dysfunction which will be quantitated by echo. Continue to diurese with Lasix at 40mg BID which is a bit less than his usual dose. Consult Acknowledgment - Thank you for your consult request.
[2018-02-03 14:20] LABS: ABSOLUTE BASOPHIL COUNT 0 /CUMM (0.0-0.2); ABSOLUTE EOSINOPHIL COUNT 0.1 /CUMM (0.0-0.7); ABSOLUTE LYMPH COUNT 1.7 /CUMM (1.2-3.4); ABSOLUTE MONOCYTE COUNT 0.9 /CUMM (0.10-0.60); BASOPHIL % 0.2 % (0.0-2.0); EOSINOPHIL % 1.5 % (0-5); GRANULOCYTE % 64.9 % (42.2-75.2); HEMATOCRIT 36.8 % (42-52); MEAN CORPUSCULAR HGB 29.2 PG (27.0-31.0); MEAN CORPUSCULAR VOLUME 88.5 FL (80.0-94.0); MEAN PLATELET VOLUME 9.7 FL (7.4-10.4); PLATELET COUNT 168 /CUMM (130-400); RBC DISTRIBUTION WIDTH 13.9 % (11.5-14.5); RED BLOOD CELL CT 4.16 /CUMM (4.70-6.10); WHITE BLOOD CELL COUNT 7.7 /CUMM (4.8-10.8)
[2018-02-03 15:06] VITALS: BP 130/54
[2018-02-03 21:37] VITALS: BP 157/68
[2018-02-04 07:03] VITALS: BP 159/70
--- NOTE | 2018-02-04 08:20 | PN- Housestaff ---
Gonzalo TORRES,[facility] 02/04/18 0820: Subjective Follow-up For: Presyncope Tele-Events Since Last Visit: NSR with heart rate 64-68 with occasional PVCs. Subjective: Patient seen and examined. Reports sleeping well overnight. Denies any episodes of lightheadedness, dizziness or any other complaints. Review of Systems Constitutional: Reports: no symptoms. Objective Last 24 Hrs of Vital Signs/I&O Vital Signs Date Time Temp Pulse Resp B/P B/P Pulse O2 O2 Flow FiO2 Mean Ox Delivery Rate 02/04 0800 96 Nasal 3.5L Cannula 02/04 0756 97 Nasal 3.5L Cannula 02/04 0749 82 152/80 02/04 0748 82 152/80 02/04 0703 98.0 72 20 159/70 98 02/04 0143 73 96 02/04 0036 74 95 02/03 2305 Nasal 3.5L Cannula 02/03 2137 97.6 72 18 157/68 97 02/03 2058 94 Nasal 3.5L Cannula 02/03 2050 78 130/80 02/03 1506 98.7 75 20 130/54 97 Nasal Cannula Intake & Output 02/04 1600 02/04 0800 02/04 0000 Intake Total 300 360 Output Total 450 900 Balance -150 -540 Intake, Oral 300 360 Output, Urine 450 900 Patient 338 lb Weight Weight Chair scale Measurement Method Physical Exam General Appearance: Alert, Oriented X3, Cooperative, Mild Distress, obese Skin: No Rashes, No Breakdown Skin Temp/Moisture Exam: Warm/Dry Sepsis Skin Exam (color): Normal for Ethnicity HEENT: Atraumatic Cardiovascular: Normal S1, Normal S2, No Murmurs Lungs: Clear to Auscultation, Normal Air Movement Abdomen: Soft, No Tenderness Neurological: Normal Speech Extremities: b/l 3+ lower extremity edema with venous stasis skin changes Last 24 Hrs of Lab/Sanya Results Last 24 Hrs of Labs/Mics: Laboratory Tests 02/04/18 07: Anion Gap 10, Estimated GFR > 60, BUN/Creatinine Ratio 25.0, CBC w Diff NO MAN DIFF REQ, RBC 4.01 L, MCV 87.8, MCH 29.3, MCHC 33.4, RDW 13.5, MPV 9.1, Gran % 68.1, Lymphocytes % 19.2 L, Monocytes % 9.9 H, Eosinophils % 2.5, Basophils % 0.3, Absolute Granulocytes 5.4, Absolute Lymphocytes 1.5, Absolute Monocytes 0.8 H, Absolute Eosinophils 0.2, Absolute Basophils 0 Assessment/Plan Assessment: 72-year-old gentleman with history of COPD on 3.5 L home oxygen, obstructive sleep apnea, hypertension, hyperlipidemia chronic lower extremity edema, who presented to ED for evaluation of episodes of lightheadedness and presyncope. Assessment and Plan: 1. Presyncope. * Orthostatics were reportedly positive in ED. * Continue monitoring on telemetry for now. * ACS was r/o with serial troponins and EKGs * Echocardiogram - pending * Continue diuresis with PO Lasix at 60mg BID 2. COPD. * Continue supplemental oxygen. * TRC and continue home nebulizers. 3. Obstructive sleep apnea. CPAP nocturnally. 4. Hypertension. Continue home antihypertensives. 5. Chronic lower extremity edema. Continue Lasix Full Code Lovenox for DVT prophylaxis. Heart healthy diet. Problem List: 1. Lightheadedness Pain Ratin Pain Location: none Pain Goal: Remain pain free Pain Plan: none Tomorrow's Labs & Rationales: BRIAN Randolph MD,[facility] 02/04/18 1315: Attending MD Review Statement Attending Statement Attending MD Statement: examined this patient, discuss w/resident/PA/ASSOCIATE PASTOR, agreed w/resident/PA/ASSOCIATE PASTOR, discussed with family, reviewed EMR data (avail), discussed with nursing, discussed with case mgmt, reviewed images Attending Assessment/Plan: 72-year-old male with past medical history significant for hypertension, CHF, obesity hypoventilation syndrome, obstructive sleep apnea noncompliant with CPAP , COPD on 3 L of home oxygen, cor pulmonale is being admitted for lightheadedness. Of note there was a recent change in his Lasix dose by his handbag framer. He was orthostatic positive on admission. Patient has been evaluated by the handbag framer who does not think his lightheadedness could be from volume depletion and more likely from labyrinthitis. Will get an echo and will continue to monitor the patient on telemetry. Continue CPAP, continue with Lasix 60 mg twice a day, DVT prophylaxis pulmonary consult appreicated and agrees with keeping pt off of steroids and antibiotics. echo pedning, likely discahrge tomorrow pending echo results
[2018-02-04 08:22] LABS: ABSOLUTE BASOPHIL COUNT 0 /CUMM (0.0-0.2); ABSOLUTE EOSINOPHIL COUNT 0.2 /CUMM (0.0-0.7); ABSOLUTE GRANULOCYTE CT 5.4 /CUMM (1.4-6.5); ABSOLUTE LYMPH COUNT 1.5 /CUMM (1.2-3.4); ABSOLUTE MONOCYTE COUNT 0.8 /CUMM (0.10-0.60); BASOPHIL % 0.3 % (0.0-2.0); EOSINOPHIL % 2.5 % (0-5); GRANULOCYTE % 68.1 % (42.2-75.2); HEMATOCRIT 35.2 % (42-52); MEAN CORPUSCULAR HGB 29.3 PG (27.0-31.0); MEAN CORPUSCULAR HGB CONC 33.4 G/DL (33.0-37.0); MEAN CORPUSCULAR VOLUME 87.8 FL (80.0-94.0); MEAN PLATELET VOLUME 9.1 FL (7.4-10.4); PLATELET COUNT 165 /CUMM (130-400); RBC DISTRIBUTION WIDTH 13.5 % (11.5-14.5); RED BLOOD CELL CT 4.01 /CUMM (4.70-6.10)
--- NOTE | 2018-02-04 11:31 | PN- Cardiology ---
Subjective Subjective: * Patient reports a momentary feeling of lightheadedness without any associated ECG changes. * sinus rhythm Objective Vital Signs and I&Os Vital Signs Date Time Temp Pulse Resp B/P B/P Pulse O2 O2 Flow FiO2 Mean Ox Delivery Rate 02/04 0800 96 Nasal 3.5L Cannula 02/04 0756 97 Nasal 3.5L Cannula 02/04 0749 82 152/80 02/04 0748 82 152/80 02/04 0703 98.0 72 20 159/70 98 02/04 0143 73 96 02/04 0036 74 95 02/03 2305 Nasal 3.5L Cannula 02/03 2137 97.6 72 18 157/68 97 02/03 2058 94 Nasal 3.5L Cannula 02/03 2050 78 130/80 02/03 1506 98.7 75 20 130/54 97 Nasal Cannula Intake & Output 02/04 1600 02/04 0800 02/04 0000 02/03 1600 02/03 0800 02/03 0000 Intake Total 300 360 850 240 Output Total 450 900 900 500 800 Balance -150 -540 -50 -260 -800 Intake, IV 150 Intake, Oral 300 360 700 240 Output, Urine 450 900 900 500 800 Patient 338 lb 335 lb 341 lb Weight Weight Chair scale Chair scale Estimated Measurement Method Physical Exam: General: WD/obese male in NAD; alert and oriented x 3 HEENT: NC/AT, PERRL, EOMI Neck: no JVD, no carotid bruit Heart: RRR w/o murmur Lungs: no crackles or wheezing Abdomen: soft, obese, NT, +ve bowel sounds Extremities: 3+ bilateral leg edema with venous stasis changes Assessment/Plan Assessment/Plan * This patient is significantly hypertensive with normal heart rate. I am suspicous that his lightheadedness was more from a labyrinthitis than from volume depletion. His orthostatic BP measurements do not make sense and I am sure they were difficult to measure due to his obesity. It is reasonable to monitor this patient on telemetry to look for arrhythmias. At present no dysrhythmias have been detected. * echocardiogram is pending to assess RV and LV function * I suspect that in the setting of hypoxia during sleep he develops stunning of the myocardium and decreased cardiac contractility. He needs to use his CPAP faithfully. At present, he does appear to have symptoms of RV dysfunction which will be quantitated by echo. Continue to diurese with Lasix at 60mg BID. Continue telemetry? Yes
--- NOTE | 2018-02-04 12:53 | ECHOCARDIOGRAM REPORT ---
LISSETHMEHNAZ Age: 72 : 1945 Gender: M Exam Date: 02/03/2018 10:35 Exam Location: [facility] Ht (in): 69 Wt (lb): 341 BSA: 2.83 BP: 160 / 84 Ordering Physician: Abhilash Smith MD Referring Physician: Abhilash Smith MD Technologist: Jennifer Miguel [facility] Room Number: 175-1 Indications: Rhythm: Sinus Technical Quality: Very technically difficult study FINDINGS Left Ventricle Normal size left ventricle. Normal left ventricular wall thickness. Normal left ventricular ejection fraction visually estimated at > 55%. Abnormal relaxation filling pattern of the left ventricle for age (stage 1 diastolic dysfunction). Right Ventricle Normal right ventricular size and function. Right Atrium Normal right atrial size. Left Atrium Normal left atrial size. Mitral Valve Mild mitral annular calcification. Trace mitral regurgitation. Aortic Valve Diffuse thickening (sclerosis) of the aortic valve cusps without reduced excursion. No aortic stenosis. No aortic regurgitation. Tricuspid Valve Tricuspid valve not well visualized, grossly normal. Pulmonic Valve Pulmonic valve not well visualized, grossly normal. Pericardium No pericardial effusion. Great Vessels Normal size aortic root. CONCLUSIONS Normal size left ventricle. Normal left ventricular wall thickness. Normal left ventricular ejection fraction visually estimated at > 55%. Abnormal relaxation filling pattern of the left ventricle for age (stage 1 diastolic dysfunction). Trace mitral regurgitation. Very technically difficult study. Vinicio Florentino M.D. (Electronically Signed) Final Date: 04 Feb 2018 12:53 MEASUREMENTS (Male / Female) Normal Values 2D ECHO LV Diastolic Diameter PLAX 3.9 cm 4.2 - 5.9 / 3.9 - 5.3 cm LV Systolic Diameter PLAX 2.7 cm 2.1 - 4.0 cm LV Fractional Shortening PLAX 30.8 % 25 - 46 % LV Ejection Fraction 2D Teich 59.0 % IVS Diastolic Thickness 1.0 cm LVPW Diastolic Thickness 1.0 cm LV Relative Wall Thickness 0.5 Aortic Root Diameter 3.3 cm LA Systolic Diameter LX 3.6 cm 3.0 - 4.0 / 2.7 - 3.8 cm LA Volume 45.0 cm 18 - 58 / 22 - 52 cm DOPPLER AV Peak Velocity 185.0 cm/s AV Peak Gradient 13.7 mmHg LVOT Peak Velocity 121.0 cm/s LVOT Peak Gradient 5.9 mmHg Mitral E Point Velocity 83.9 cm/s Mitral A Point Velocity 122.0 cm/s Mitral E to A Ratio 0.7 MV Deceleration Time 271.0 ms TV Peak Velocity 278.0 cm/s PV Peak Velocity 119.0 cm/s PV Peak Gradient 5.7 mmHg LV E' Lateral Velocity 11.3 cm/s Mitral E to LV E' Lateral Ratio 7.4 LV E' Septal Velocity 10.9 cm/s Mitral E to LV E' Septal Ratio 7.7
[2018-02-04 15:12] VITALS: BP 134/58
--- NOTE | 2018-02-04 16:01 | PN- Pulmonary ---
Subjective HPI/Critical Care Issues: NSR with heart rate 64-68 with occasional PVCs. Subjective: Patient seen and examined. Reports sleeping well overnight. Denies any episodes of lightheadedness, dizziness or any other complaints. Review of Systems Constitutional: Reports: no symptoms. Objective Current Medications: Current Medications Sig/Gracia Start time Last Medication Dose Route Stop Time Status Admin Acetaminophen 650 MG Q4P PRN 02/04 1015 AC 02/04 PO 1023 Albuterol Sulfate 3 ML EVERY 4 HRS/AWAKE 02/03 1200 AC 02/04 INH 1122 Albuterol Sulfate 2 PUF Q4H PRN 02/03 0045 AC INH Aspirin 81 MG DAILY 02/03 0900 AC 02/04 PO 0746 Atorvastatin Calcium 40 MG 1700 02/03 1700 AC 02/03 PO 1717 Budesonide/ 2 PUF BID 02/03 0031 AC 02/04 Formoterol Fumarate INH 0749 Enoxaparin Sodium 40 MG DAILY 02/03 0900 AC 02/04 SC 0749 Furosemide 60 MG 7:30 AM, & 4:30 PM 02/04 1630 AC PO Furosemide 40 MG 7:30 AM, & 4:30 PM 02/03 1945 DC 02/04 PO 0746 Gemfibrozil 600 MG BID 02/03 0900 AC 02/04 PO 0746 Ipratropium [place] 2.5 ML EVERY 4 HRS/AWAKE 02/03 1200 AC 02/04 INH 1122 Lisinopril 10 MG DAILY 02/03 0900 AC 02/04 PO 0749 Meclizine HCl 12.5 MG TID PRN 02/03 0045 AC PO Metoprolol Tartrate 50 MG BID 02/03 09 AC 02/04 PO 0748 Omeprazole 40 MG DAILY AC 02/03 0700 AC 02/04 PO 0602 Vital Signs & I&O Last 24 Hrs of Vitals and I&O: Vital Signs Date Time Temp Pulse Resp B/P B/P Pulse O2 O2 Flow FiO2 Mean Ox Delivery Rate 02/04 1512 97.4 73 20 134/58 99 Nasal 3.0L Cannula 02/04 0800 96 Nasal 3.5L Cannula 02/04 0756 97 Nasal 3.5L Cannula 02/04 0749 82 152/80 02/04 0748 82 152/80 02/04 0703 98.0 72 20 159/70 98 02/04 0143 73 96 02/04 0036 74 95 02/03 2305 Nasal 3.5L Cannula 02/03 2137 97.6 72 18 157/68 97 02/03 2058 94 Nasal 3.5L Cannula 02/03 2050 78 130/80 Intake & Output 02/04 1600 02/04 0800 02/04 0000 Intake Total 800 300 360 Output Total 1200 450 900 Balance -400 -150 -540 Intake, Oral 800 300 360 Output, Urine 1200 450 900 Patient 338 lb Weight Weight Chair scale Measurement Method Laboratory Tests 02/04 02/03 0720 1147 Chemistry Sodium (137 - 145 mmol/L) 139 Potassium (3.5 - 5.1 mmol/L) 4.0 Chloride (98 - 107 mmol/L) 95 L Carbon Dioxide (22 - 30 mmol/L) 34 H Anion Gap (5 - 16) 10 BUN (9 - 20 mg/dL) 15 Creatinine (0.7 - 1.2 mg/dL) 0.6 L Estimated GFR (>60 ml/min) > 60 BUN/Creatinine Ratio (7 - 25 %) 25.0 Hematology CBC w Diff NO MAN DIFF REQ NO MAN DIFF REQ WBC (4.8 - 10.8 /CUMM) 8.0 7.7 RBC (4.70 - 6.10 /CUMM) 4.01 L 4.16 L Hgb (14.0 - 18.0 G/DL) 11.8 L 12.1 L Hct (42 - 52 %) 35.2 L 36.8 L MCV (80.0 - 94.0 FL) 87.8 88.5 MCH (27.0 - 31.0 PG) 29.3 29.2 MCHC (33.0 - 37.0 G/DL) 33.4 33.0 RDW (11.5 - 14.5 %) 13.5 13.9 Plt Count (130 - 400 /CUMM) 165 168 MPV (7.4 - 10.4 FL) 9.1 9.7 Gran % (42.2 - 75.2 %) 68.1 64.9 Lymphocytes % (20.5 - 51.1 %) 19.2 L 22.4 Monocytes % (1.7 - 9.3 %) 9.9 H 11.0 H Eosinophils % (0 - 5 %) 2.5 1.5 Basophils % (0.0 - 2.0 %) 0.3 0.2 Absolute Granulocytes (1.4 - 6.5 /CUMM) 5.4 5.0 Absolute Lymphocytes (1.2 - 3.4 /CUMM) 1.5 1.7 Absolute Monocytes (0.10 - 0.60 /CUMM) 0.8 H 0.9 H Absolute Eosinophils (0.0 - 0.7 /CUMM) 0.2 0.1 Absolute Basophils (0.0 - 0.2 /CUMM) 0 0 02/0340 1910 Chemistry Sodium (137 - 145 mmol/L) 139 Potassium (3.5 - 5.1 mmol/L) 4.0 Chloride (98 - 107 mmol/L) 94 L Carbon Dioxide (22 - 30 mmol/L) 32 H Anion Gap (5 - 16) 13 BUN (9 - 20 mg/dL) 18 Creatinine (0.7 - 1.2 mg/dL) 0.7 Estimated GFR (>60 ml/min) > 60 BUN/Creatinine Ratio (7 - 25 %) 25.7 H Troponin I (<0.11 ng/ml) 0.05 Urines Urine Color (YEL,AMB,STR) YEL Urine Clarity (CLEAR) CLEAR Urine pH (5.0 - 8.0) 6.0 Ur Specific [place] (1.001 - 1.035) 1.010 Urine Protein (NEG,<30 MG/DL) NEG Urine Ketones (NEG) NEG Urine Nitrite (NEG) NEG Urine Bilirubin (NEG) NEG Urine Urobilinogen (0.1 - 1.0 EU/dl) 0.2 Ur Leukocyte Esterase (NEG) TRACE H Ur Microscopic SEDIMENT EXAMINED Urine RBC (0 - 5 /HPF) 1-3 Urine WBC (0 - 2 /HPF) 1-3 H Ur Epithelial Cells (NONE,FEW) RARE Urine Bacteria (NEG/NONE) RARE H Urine Hemoglobin (NEG) MOD H Urine Glucose (N MG/DL) NEG 02/02 02/02 1850 1815 Blood Gas pH (7.35 - 7.45 PH) 7.43 pCO2 (35 - 45 TORR) 46 H pO2 (80 - 100 TORR) 82 HCO3 (21 - 28 MEQ/L) 30 H ABG O2 Sat (Measured) (>96.0 %) 95.0 L Carboxyhemoglobin (1.5 - 5.0 %) 1.0 L O2 Concentration % 3L O2 Delivery Method NC Chemistry Sodium (137 - 145 mmol/L) 137 Potassium (3.5 - 5.1 mmol/L) 4.2 Chloride (98 - 107 mmol/L) 92 L Carbon Dioxide (22 - 30 mmol/L) 32 H Anion Gap (5 - 16) 13 BUN (9 - 20 mg/dL) 20 Creatinine (0.7 - 1.2 mg/dL) 0.7 Estimated GFR (>60 ml/min) > 60 BUN/Creatinine Ratio (7 - 25 %) 28.6 H Glucose (65 - 99 mg/dL) 108 H Calcium (8.4 - 10.2 mg/dL) 9.1 Total Bilirubin (0.2 - 1.3 mg/dL) 0.7 AST (17 - 59 U/L) 43 ALT (21 - 72 U/L) 36 Alkaline Phosphatase (< 127 U/L) 38 Troponin I (<0.11 ng/ml) 0.01 Total Protein (6.3 - 8.2 g/dL) 7.6 Albumin (3.5 - 5.0 g/dL) 4.3 Globulin (1.9 - 4.2 gm/dL) 3.3 Albumin/Globulin Ratio (1.1 - 2.2 %) 1.3 Hematology CBC w Diff NO MAN DIFF REQ WBC (4.8 - 10.8 /CUMM) 7.5 RBC (4.70 - 6.10 /CUMM) 4.18 L Hgb (14.0 - 18.0 G/DL) 12.1 L Hct (42 - 52 %) 36.5 L MCV (80.0 - 94.0 FL) 87.2 MCH (27.0 - 31.0 PG) 29.0 MCHC (33.0 - 37.0 G/DL) 33.2 RDW (11.5 - 14.5 %) 14.1 Plt Count (130 - 400 /CUMM) 169 MPV (7.4 - 10.4 FL) 8.9 Gran % (42.2 - 75.2 %) 67.2 Lymphocytes % (20.5 - 51.1 %) 20.5 Monocytes % (1.7 - 9.3 %) 10.4 H Eosinophils % (0 - 5 %) 1.6 Basophils % (0.0 - 2.0 %) 0.3 Absolute Granulocytes (1.4 - 6.5 /CUMM) 5.1 Absolute Lymphocytes (1.2 - 3.4 /CUMM) 1.5 Absolute Monocytes (0.10 - 0.60 /CUMM) 0.8 H Absolute Eosinophils (0.0 - 0.7 /CUMM) 0.1 Absolute Basophils (0.0 - 0.2 /CUMM) 0 Miscellaneous Phlebotomy Draw Site RIGHT RADIAL Impression/Plan Impression/Plan Impression/Plan: General Appearance Alert, Oriented X3, Cooperative Skin Temp/Moisture Exam: Warm/Dry Sepsis Skin Exam (color): Normal for Ethnicity HEENT Atraumatic, PERRLA, EOMI, Mucous Membr. moist/pink Neck No JVD, +2 Carotid Pulse wo Bruit Cardiovascular Regular Rate, Normal S1, Normal S2 Lungs diminished breath sounds secondary to body habitus, no w/r/r Abdomen Normal Bowel Sounds, Soft, No Tenderness, obese Neurological Normal Speech, Strength at 5/5 X4 Ext, Normal Tone, Sensation Intact, Cranial Nerves 3-12 NL, fatigable horizontal nystagmus Extremities chronic venous stasis changes on the LEs bilaterally, 2+ pitting edema of the LEs bilaterally, trace edema of the hands bilaterally SIGNIFICANT DATA Chest x-ray unremarkable Baseline bicarbonate is only 32 now potassium is adequate BUN/creatinine stable no significant elevated white count hemoglobin has been stable ABG reviewed which shows mild hypercarbia much better than before with PCO2 of 46 This is a gentleman with history of severe COPD on chronic oxygen therapy, significant cor pulmonale which is chronic, severe obstructive and central sleep apnea who has been on CPAP before was compliant now has been noncompliant, hypertension, hyperlipidemia, peripheral vascular disease with aortic aneurysm which is stable, no comes in with * Presyncope, orthostasis, recent vertigo suggestive of benign positional vertigo BETTER * Dhronic cor pulmonale with still has significant pedal edema etc. but this is stable * Chronic diastolic heart failure on Lasix * MOd severe copd with fev1 of 1.5 litres, no clear exacerbation * Very severe obstructive and central sleep apnea patient noncompliant recently due to his CPAP and mask issues * Significant fatty liver with hepatomegaly with no significant dysfunction of synthetic function of the liver * Morbid obesity with difficulty in losing weight * Chronic venous insufficiency with venous stasis with stasis dermatitis RECOMMENDATIONS Continue his nebulizer therapy Continue all his other medications No need for steroids systemically No antibiotics Continue meclizine Patient appears euvolemic Keep his leg elevated Patient counseled extensively about his CPAP stasis mask home and use it daily
[2018-02-04 22:24] VITALS: BP 128/72
[2018-02-05 06:48] VITALS: BP 128/62
--- NOTE | 2018-02-05 08:16 | PN- Housestaff ---
Gonzalo TORRES,[facility] 02/05/18 0816: Subjective Follow-up For: Syncope Tele-Events Since Last Visit: NSR/1st degree AVB with HR 64-75. No overnight events Subjective: Patient seen and examined. States he got only two hours of sleep last night as someone get coming in to check up on him. He is without complaints. Review of Systems Constitutional: Reports: no symptoms. Objective Last 24 Hrs of Vital Signs/I&O Vital Signs Date Time Temp Pulse Resp B/P B/P Pulse O2 O2 Flow FiO2 Mean Ox Delivery Rate 02/05 0821 95 Nasal 3.5L Cannula 02/05 0800 96 Nasal 3.5L Cannula 02/05 0749 73 138/88 02/05 0748 73 138/88 02/05 0648 97.9 73 20 128/62 96 Nasal Cannula 02/05 0156 67 98 02/05 0153 96 Nasal 3.5L Cannula 02/04 2224 97.8 83 20 128/72 97 Nasal Cannula 02/04 2120 Nasal 3.5L Cannula 02/04 2107 78 128/72 02/04 1718 94 Nasal 3.5L Cannula 02/04 1512 97.4 73 20 134/58 99 Nasal 3.0L Cannula Intake & Output 02/05 1600 02/05 0800 02/05 0000 Intake Total 325 805 Output Total 900 1250 Balance -575 -445 Intake, Oral 325 805 Output, Urine 900 1250 Patient 330 lb Weight Physical Exam General Appearance: Alert, Oriented X3, Cooperative, Mild Distress Skin: No Rashes, No Breakdown Skin Temp/Moisture Exam: Warm/Dry Sepsis Skin Exam (color): Normal for Ethnicity HEENT: Atraumatic Cardiovascular: Normal S1, Normal S2, No Murmurs Lungs: Normal Air Movement, decreased breath sounds Abdomen: Soft, No Tenderness Neurological: Normal Speech Extremities: b/l lower extremity edema with stasis skin changes. Last 24 Hrs of Lab/Sanya Results Last 24 Hrs of Labs/Mics: Laboratory Tests 02/05/18 0745: Anion Gap 13, Estimated GFR > 60, BUN/Creatinine Ratio 18.6 Assessment/Plan Assessment: 72-year-old gentleman with history of COPD on 3.5 L home oxygen, obstructive sleep apnea, hypertension, hyperlipidemia chronic lower extremity edema, who presented to ED for evaluation of episodes of lightheadedness and presyncope. Assessment and Plan: 1. Presyncope. * Orthostatics were reportedly positive in ED. * Continue monitoring on telemetry for now. * ACS was r/o with serial troponins and EKGs * Echocardiogram - pending. * Continue diuresis with PO Lasix at 60mg BID 2. COPD. * Continue supplemental oxygen. * TRC and continue home nebulizers. 3. Obstructive sleep apnea. CPAP nocturnally. He has been advised that he needs to use his CPAP at night. 4. Hypertension. Continue home antihypertensives. 5. Chronic lower extremity edema. Continue Lasix Full Code Lovenox for DVT prophylaxis. Heart healthy diet. Problem List: 1. Lightheadedness Pain Ratin Pain Location: none Pain Goal: Remain pain free Pain Plan: none Tomorrow's Labs & Rationales: CBC, BEP Tomasa TORRES,[facility] 02/05/18 1159: Attending MD Review Statement Attending Statement Attending MD Statement: examined this patient, discuss w/resident/PA/FERRYBOAT CAPTAIN, agreed w/resident/PA/FERRYBOAT CAPTAIN, reviewed EMR data (avail), discussed with nursing, discussed with case mgmt, reviewed images, amended to note Attending Assessment/Plan: 72-year-old male with past medical history significant for hypertension, CHF, obesity hypoventilation syndrome, obstructive sleep apnea noncompliant with CPAP , chronic respiratory failure secondary to COPD on 3 0.5 L of home oxygen, and cor pulmonale is being admitted for lightheadedness. Of note there was a recent change in his Lasix dose by his research director. He was orthostatic positive on admission. Patient has been evaluated by the research director who does not think his lightheadedness could be from volume depletion and more likely from labyrinthitis. Continue CPAP, continue with Lasix 60 mg twice a day, DVT prophylaxis pulmonary consult appreicated and agrees with keeping pt off of steroids and antibiotics. Echo with normal size left ventricle and left ventricular wall thickness with normal left ventricular ejection fraction but abnormal relaxation filling pattern of the left ventricle, stage I diastolic dysfunction. Patient reports that his dizziness has resolved, no dysrhythmias on telemetry. Vitals stable, patient is on 3.5 L oxygen by nasal cannula which is his baseline. Patient is stable to be discharged pending any further cardiology recommendations
--- NOTE | 2018-02-05 12:11 | PN- Pulmonary ---
Subjective HPI/Critical Care Issues: Patient seen and examined. Feels much improved and wishes to go home States he got only two hours of sleep last night as someone get coming in to check up on him. He is without complaints. Review of Systems Constitutional: Reports: no symptoms. Objective Current Medications: Current Medications Sig/Gracia Start time Last Medication Dose Route Stop Time Status Admin Acetaminophen 650 MG Q4P PRN 02/04 1015 AC 02/05 PO 0746 Albuterol Sulfate 3 ML EVERY 4 HRS/AWAKE 02/03 1200 AC 02/05 INH 1207 Albuterol Sulfate 2 PUF Q4H PRN 02/03 0045 AC INH Aspirin 81 MG DAILY 02/03 0900 AC 02/05 PO 0747 Atorvastatin Calcium 40 MG 1700 02/03 1700 AC 02/04 PO 1820 Budesonide/ 2 PUF BID 02/03 0031 AC 02/05 Formoterol Fumarate INH 0750 Enoxaparin Sodium 40 MG DAILY 02/03 0900 AC 02/05 SC 0750 Furosemide 60 MG 7:30 AM, & 4:30 PM 02/04 1630 AC 02/05 PO 0745 Furosemide 40 MG 7:30 AM, & 4:30 PM 02/03 1945 DC 02/04 PO 0746 Gemfibrozil 600 MG BID 02/03 0900 AC 02/05 PO 0747 Ipratropium [place] 2.5 ML EVERY 4 HRS/AWAKE 02/03 1200 AC 02/05 INH 1207 Lisinopril 10 MG DAILY 02/03 0900 AC 02/05 PO 0749 Meclizine HCl 12.5 MG TID PRN 02/03 0045 AC PO Metoprolol Tartrate 50 MG BID 02/03 09 AC 02/05 PO 0748 Omeprazole 40 MG DAILY AC 02/03 0700 AC 02/05 PO 0617 Vital Signs & I&O Last 24 Hrs of Vitals and I&O: Vital Signs Date Time Temp Pulse Resp B/P B/P Pulse O2 O2 Flow FiO2 Mean Ox Delivery Rate 02/05 0821 95 Nasal 3.5L Cannula 02/05 0800 96 Nasal 3.5L Cannula 02/05 0749 73 138/88 02/05 0748 73 138/88 02/05 0648 97.9 73 20 128/62 96 Nasal Cannula 02/05 0156 67 98 02/05 0153 96 Nasal 3.5L Cannula 02/04 2224 97.8 83 20 128/72 97 Nasal Cannula 02/04 2120 Nasal 3.5L Cannula 02/04 2107 78 128/72 02/04 1718 94 Nasal 3.5L Cannula 02/04 1512 97.4 73 20 134/58 99 Nasal 3.0L Cannula Intake & Output 02/05 1600 02/05 0800 02/05 0000 Intake Total 325 805 Output Total 900 1250 Balance -575 -445 Intake, Oral 325 805 Output, Urine 900 1250 Patient 330 lb Weight Impression/Plan Impression/Plan Impression/Plan: General Appearance Alert, Oriented X3, Cooperative Skin Temp/Moisture Exam: Warm/Dry Sepsis Skin Exam (color): Normal for Ethnicity HEENT Atraumatic, PERRLA, EOMI, Mucous Membr. moist/pink Neck No JVD, +2 Carotid Pulse wo Bruit Cardiovascular Regular Rate, Normal S1, Normal S2 Lungs diminished breath sounds secondary to body habitus, no w/r/r Abdomen Normal Bowel Sounds, Soft, No Tenderness, obese Neurological Normal Speech, Strength at 5/5 X4 Ext, Normal Tone, Sensation Intact, Cranial Nerves 3-12 NL, fatigable horizontal nystagmus Extremities chronic venous stasis changes on the LEs bilaterally, 2+ pitting edema of the LEs bilaterally, trace edema of the hands bilaterally SIGNIFICANT DATA Chest x-ray unremarkable Baseline bicarbonate is only 32 now potassium is adequate BUN/creatinine stable no significant elevated white count hemoglobin has been stable ABG reviewed which shows mild hypercarbia much better than before with PCO2 of 46 This is a gentleman with history of severe COPD on chronic oxygen therapy, significant cor pulmonale which is chronic, severe obstructive and central sleep apnea who has been on CPAP before was compliant now has been noncompliant, hypertension, hyperlipidemia, peripheral vascular disease with aortic aneurysm which is stable, no comes in with * resolved Presyncope, orthostasis, recent vertigo suggestive of benign positional vertigo BETTER * Dhronic cor pulmonale with still has significant pedal edema etc. but this is stable * Chronic diastolic heart failure on Lasix * MOd severe copd with fev1 of 1.5 litres, no clear exacerbation * Very severe obstructive and central sleep apnea patient noncompliant recently due to his CPAP and mask issues * Significant fatty liver with hepatomegaly with no significant dysfunction of synthetic function of the liver * Morbid obesity with difficulty in losing weight * Chronic venous insufficiency with venous stasis with stasis dermatitis RECOMMENDATIONS OK to dc Continue his nebulizer therapy Continue all his other medications No need for steroids systemically No antibiotics Continue meclizine Patient appears euvolemic Keep his leg elevated Patient counseled extensively about his CPAP use and can take the mask he is using now to home and use it daily
--- NOTE | 2018-02-05 12:55 | PN- Cardiology ---
Subjective Subjective: * Patient ambulated today without shortness of breath. No lightheadedness. * sinus rhythm Objective Vital Signs and I&Os Vital Signs Date Time Temp Pulse Resp B/P B/P Pulse O2 O2 Flow FiO2 Mean Ox Delivery Rate 02/05 0821 95 Nasal 3.5L Cannula 02/05 0800 96 Nasal 3.5L Cannula 02/05 0749 73 138/88 02/05 0748 73 138/88 02/05 0648 97.9 73 20 128/62 96 Nasal Cannula 02/05 0156 67 98 02/05 0153 96 Nasal 3.5L Cannula 02/04 2224 97.8 83 20 128/72 97 Nasal Cannula 02/04 2120 Nasal 3.5L Cannula 02/04 2107 78 128/72 02/04 1718 94 Nasal 3.5L Cannula 02/04 1512 97.4 73 20 134/58 99 Nasal 3.0L Cannula Intake & Output 02/05 1600 02/05 0800 02/05 0000 02/04 1600 02/04 0800 02/04 0000 Intake Total 325 805 800 300 360 Output Total 900 1250 1200 450 900 Balance -575 -445 -400 -150 -540 Intake, Oral 325 805 800 300 360 Output, Urine 900 1250 1200 450 900 Patient 330 lb 338 lb Weight Weight Chair scale Measurement Method Physical Exam: General: WD/obese male in NAD; alert and oriented x 3 HEENT: NC/AT, PERRL, EOMI Neck: no JVD, no carotid bruit Heart: RRR w/o murmur Lungs: no crackles or wheezing Abdomen: soft, obese, NT, +ve bowel sounds Extremities: 2+ bilateral leg edema with venous stasis changes Assessment/Plan Assessment/Plan * This patient is is now normotensive with normal heart rate. I am suspicous that his lightheadedness was more from a labyrinthitis than from volume depletion. His orthostatic BP measurements do not make sense and I am sure they were difficult to measure due to his obesity. No dysrhythmias have been found on telemetry. He is stable for discharge from a cardiac perspective today on Lasix 60mg PO BID with follow up in the office in one week. Continue telemetry? Yes
[2018-02-05 14:15] VITALS: BP 130/52
--- NOTE | 2018-02-05 17:58 | Patient Discharge Instructions ---
Discharge Instructions General Discharge Information You were seen/treated for: Lightheadedness Special Instructions: Please follow up with your PCP and dish room worker within one week of discharge. Diet Continue normal diet: Yes Recommended Diet: Heart Healthy Activity Full Activity/No Limits: Yes Acute Coronary Syndrome Inclusion Criteria At DC or during hospital stay patient has or had the following: ACS DIAGNOSIS No Discharge Core Measures Meds if any: Prescribed or Continued at Discharge Meds if any: NOT Prescribed or Continued at Discharge Congestive Heart Failure Inclusion Criteria At DC or during hospital stay patient has or had the following: CHF DIAGNOSIS No Discharge Core Measures Meds if any: Prescribed or Continued at Discharge Meds if any: NOT Prescribed or Continued at Discharge Cerebrovascular accident Inclusion Criteria At DC or during hospital stay patient has or had the following: CVA/TIA Diagnosis No Discharge Core Measures Meds if any: Prescribed or Continued at Discharge Meds if any: NOT Prescribed or Continued at Discharge Venous thromboembolism Inclusion Criteria VTE Diagnosis No VTE Type NONE VTE Confirmed by (Test) NONE Discharge Core Measures - Per Current guidelines, there needs to be overlap - treatment for the first 5 days of Warfarin therapy. - If discharged on Warfarin prior to 5 days of - overlap therapy, the patient will need to be - assessed for post discharge needs including - *Post discharge parental anticoagulation - *Warfarin and/or parental anticoagulation education - *Follow up date to check INR post discharge At least 5 days overlap therapy as Inpatient No Meds if any: Prescribed or Continued at Discharge Note: Overlap Therapy is Warfarin and Anticoagulant Meds if any: NOT Prescribed or Continued at Discharge
[2018-02-05] MEDS ORDERED: LASIX40 M1 PO (18:00)
--- NOTE | 2018-02-05 18:08 | Discharge Summary ---
Visit Information Visit Dates Admission Date: 02/02/18 Discharge Date: 02/05/18 Hospital Course Course Attending Physician: Tomasa TORRES, [facility] Primary Care Physician: Sonali TORRES,[facility] Course: Mr Duong is a 72-year-old gentleman with history of COPD on 3.5 L home oxygen, obstructive sleep apnea, hypertension, hyperlipidemia, CHF and chronic lower extremity edema, who presented to ED for evaluation of an episode of severe lightheadedness that happened at rest. Near Syncope: Patient presented to the ED after an episode of lightheadedness and near syncope. He was admitted to telemetry for monitoring of arrhythmias. ACS was ruled out with serial negative troponins and EKGs. He was evaluated by cardiology and felt that he had no symptoms of right or left sided heart failure. His episode of lightheadedness was likely more from a labyrinthitis than from volume depletion. He had an echocardiogram which showed normal LVEF. No dysrhythmias were found on telemetry. He was advised to continue his meclizine. He was discharged in stable disposition with recommendations to follow up with his high school science teacher within one week of discharge. History of COPD: He was continued on oxygen along with TRC/nebs as needed. History of Obstructive Sleep Apnea: Patient is noncompliant with his CPAP. He was counseled extensively to use his CPAP faithfully. Allergies: Coded Allergies: aspirin (BLEEDING 02/05/18) PT STATES, "I AM NOT ALLERGIC TO ASPIRIN. I HAD TROUBLE IN THE PAST, BUT IT HAS BEEN FINE SINCE I STARTED PRILOSEC." Significant Procedures: SERVICE DATE: 02/03/18 EXAM TYPE: CARD - ECHOCARDIOGRAM FINDINGS Left Ventricle Normal size left ventricle. Normal left ventricular wall thickness. Normal left ventricular ejection fraction visually estimated at > 55%. Abnormal relaxation filling pattern of the left ventricle for age (stage 1 diastolic dysfunction). Right Ventricle Normal right ventricular size and function. Right Atrium Normal right atrial size. Left Atrium Normal left atrial size. Mitral Valve Mild mitral annular calcification. Trace mitral regurgitation. Aortic Valve Diffuse thickening (sclerosis) of the aortic valve cusps without reduced excursion. No aortic stenosis. No aortic regurgitation. Tricuspid Valve Tricuspid valve not well visualized, grossly normal. Pulmonic Valve Pulmonic valve not well visualized, grossly normal. Pericardium No pericardial effusion. Great Vessels Normal size aortic root. CONCLUSIONS Normal size left ventricle. Normal left ventricular wall thickness. Normal left ventricular ejection fraction visually estimated at > 55%. Abnormal relaxation filling pattern of the left ventricle for age (stage 1 diastolic dysfunction). Trace mitral regurgitation. Very technically difficult study. SERVICE DATE: 02/02/18 EXAM TYPE: RAD - XRY-PORTABLE CHEST XRAY FINDINGS: The cardiac silhouette is stable. The mediastinal and hilar contours are unremarkable. There are neither pleural effusions nor pneumothoraces. There are no consolidations. The osseous structures are unremarkable. IMPRESSION: No evidence for acute disease. Disposition Summary Disposition Principal Diagnosis: Near Syncope Lightheadedness Additional Diagnosis: COPD BARBARA Hypertension Chronic Lower Extremity Edema Discharge Disposition: home or self care Discharge Instructions General Discharge Information Code Status: Full Code Patient's Diet: Heart healthy diet. Patient's Activity: As tolerated Follow-Up Instructions/Appts: Please follow up with your PCP and high school science teacher within one week of discharge. Medications at Discharge Discharge Medications: Stop taking the following medications: Furosemide (Furosemide) 40 MG TABLET ORAL Every night Qty = 180 Furosemide (Lasix) 80 MG TABLET ORAL Every Morning Continue taking these medications: Albuterol Sulfate (Albuterol Sulfate) 2.5 MG/3 ML VIAL.NEB 1 VIAL Inhale through mouth 5XDAILY as needed for COPD Qty = 375 Comments: Last Taken: 02/05/18 Time: 4:30 PM Gemfibrozil (Gemfibrozil) 600 MG TABLET 1 Tablet ORAL TWICE DAILY Qty = 180 Comments: Last Taken: 02/05/18 Time: 8:00 AM Metoprolol Tartrate (Metoprolol Tartrate) 50 MG TABLET 1 Tablet ORAL TWICE DAILY Qty = 180 Comments: Last Taken: 02/05/18 Time: 8:00 AM Lansoprazole (Prevacid) 15 MG CAPSULE.DR 1 Capsule ORAL DAILY Comments: NOT GIVEN Multivit-Min/FA/Lycopen/Lutein (Centrum Silver Tablet) 1 EACH TABLET 1 Tablet ORAL DAILY Comments: NOT GIVEN Atorvastatin Calcium (Atorvastatin Calcium) 40 MG TABLET 40 Milligram ORAL 5 PM Qty = 30 Comments: Last Taken: 02/05/18 Time: 5:00 PM Aspirin (Aspirin*) 81 MG TAB.CHEW 81 Milligram ORAL DAILY Qty = 30 Comments: Last Taken: 02/05/18 Time: 8:00 AM Lisinopril (Lisinopril) 10 MG TABLET 10 Milligram ORAL DAILY Qty = 30 Comments: Last Taken: 02/05/18 Time: 8:00 AM Ipratropium [place] (Ipratropium [place]) 0.2 MG/ML (0.02 %) SOLUTION 1 Vial Inhale Solution 5XDAILY as needed for COPD Qty = 300 Comments: Last Taken: 02/05/18 Time: 4:30 PM Folic Acid (Folic Acid) 0.4 MG TABLET 1 Tablet ORAL DAILY Comments: NOT GIVEN Meclizine HCl (Meclizine HCl) 25 MG TABLET 1 Tablet ORAL As Directed as needed for DIZZINESS Comments: NOT GIVEN Albuterol Sulfate (Ventolin Hfa) 90 MCG HFA.AER.AD 2 Puff Inhale through mouth Q4H as needed for RESP. Qty = 36 Comments: NOT GIVEN Budesonide/Formoterol Fumarate (Symbicort 160-4.5 Mcg Inhaler) 160 MCG-4.5 MCG/ ACTUATION HFA.AER.AD 2 Puff Inhale through mouth TWICE DAILY Qty = 10 Comments: Last Taken: 02/05/18 Time: 8:00 AM Vitamin E Mixed (Vitamin E) 400 UNIT CAPSULE 2 Capsule ORAL DAILY Comments: NOT GIVEN Start taking the following new medications: Furosemide (Lasix) 40 MG TABLET 1.5 Tablet ORAL TWICE DAILY Qty = 30 No Refills Comments: Last Taken: 02/05/18 Time: 5:00 PM Copies To: Sonali TORRES,Brandi
== END 2018-02-05 18:45 | DRG 149 ==
LOC: ERH 18:09 → 1NO 23:40 → ERHI 23:40 → ENRESERV 02-03 00:10 → 1NO 02-03 01:02
PROVIDERS: Emergency Medicine; Internal Medicine Hematology & Oncology
DX: H83.09 Labyrinthitis, unspecified ear (principal); J96.11 Chronic respiratory failure with hypoxia; I27.81 Cor pulmonale (chronic); J96.12 Chronic respiratory failure with hypercapnia; I50.32 Chronic diastolic (congestive) heart failure; I11.0 Hypertensive heart disease with heart failure; R16.0 Hepatomegaly, not elsewhere classified; E66.01 Morbid (severe) obesity due to excess calories; J44.9 Chronic obstructive pulmonary disease, unspecified; K76.0 Fatty (change of) liver, not elsewhere classified; Z91.19 Patient's noncompliance with other medical treatment and regimen; Z79.82 Long term (current) use of aspirin; K21.9 Gastro-esophageal reflux disease without esophagitis; G47.33 Obstructive sleep apnea (adult) (pediatric); E78.5 Hyperlipidemia, unspecified; I83.10 Varicose veins of unspecified lower extremity with inflammation; I95.1 Orthostatic hypotension; I73.9 Peripheral vascular disease, unspecified
CPT/HCPCS: 1NP; ERO; 36415; 71045; 81001; 82436; 93005; 93010; 93306; 97110-GO; 97116-GO; 97161-GP; 97530-GO; J1650; J3490